=== PATIENT | male | born 1945 | race Caucasian/White ===

== ENCOUNTER 2020-04-28 07:28 | Emergency (ER) | payer MEDICARE, OTHER ==
[~2020-04-28] VITALS: Ht 172.7 cm; Wt 83.0 kg
[~2020-04-28 07:28] MED LIST: AMI25T PO; ASPI-10; ATEN-169 PO; CARI350T PO; CLOP75TA35 PO; DIPH-423 PO; HCTZ25T PO; HYDR-4353 PO; RANI-366 PO; ZOC40T PO
[2020-04-28] MEDS ORDERED: oxyCODONE SR 10mg (sust. release) tab PO ONE (09:00)
[2020-04-28] MEDS ORDERED: ketorolac trometh. 30mg/ml inj. IM ONE (09:00)
[2020-04-28 09:41] VITALS: BP 158/75
== END 2020-04-28 10:30 | disposition home or self-care (01) ==
LOC: ER 07:28
DX: G89.29 Other chronic pain (principal); M47.896 Other spondylosis, lumbar region; M16.9 Osteoarthritis of hip, unspecified; I25.10 Atherosclerotic heart disease of native coronary artery without angina pectoris; Z98.61 Coronary angioplasty status; Z98.890 Other specified postprocedural states; Z79.82 Long term (current) use of aspirin
CPT/HCPCS: 72100; 72170; 73552; 96372; 99284; J1885

== ENCOUNTER 2021-02-18 10:36 | Day surgery (SDC) | payer MEDICARE ==
[2021-02-17 14:13] LABS: BASOPHILS % (AUTO) 0.7 % (0-1); EOSINOPHILS # (AUTO) 0.2 X10'3 (0-0.9); EOSINOPHILS % (AUTO) 4.1 % (0-6); HEMATOCRIT 45.8 % (42.0-52.0); HEMOGLOBIN 15.2 g/dl (14.0-17.9); LYMPHOCYTES # (AUTO) 0.8 X10'3 (1.1-4.8); LYMPHOCYTES % (AUTO) 19.4 % (21-51); MEAN CORPUSCULAR HEMOGLOBIN 31.6 PG (27.0-31.0); MEAN CORPUSCULAR HGB CONC 33.2 g/dL (33.0-36.5); MONOCYTES # (AUTO) 0.3 X10'3 (0-0.9); MONOCYTES % (AUTO) 8.3 % (2-12); NEUTROPHILS # (AUTO) 2.8 X10'3 (1.8-7.7); NEUTROPHILS % (AUTO) 67.5 % (42-75); PLATELET COUNT 241 X10'3 (140-440); RED BLOOD COUNT 4.82 X10'6 (4.70-6.10); RED CELL DISTRIBUTION WIDTH 13.3 % (11.5-14.5); WHITE BLOOD COUNT 4.1 X10'3 (4.5-11.0)
[2021-02-17 14:21] LABS: ALBUMIN 4.2 G/DL (3.4-5.0); ANION GAP 8 (8-16); BLOOD UREA NITROGEN 18 MG/DL (7-18); BUN/CREATININE RATIO 17.5 (5.4-32.0); CALCIUM 9.6 MG/DL (8.5-10.1); CHLORIDE 101 MMOL/L (99-107); CREATININE 1.03 MG/DL (0.60-1.10); GLUCOSE 108 MG/DL (70-104); POTASSIUM 4.2 MMOL/L (3.5-5.1); SODIUM 139 MMOL/L (135-145); TOTAL CARBON DIOXIDE 29.9 MMOL/L (24-32); eGFR 70 ML/MIN
[2021-02-17 14:25] LABS: PARTIAL THROMBOPLASTIN TIME 27 SECONDS (22-32)
[2021-02-18] VITALS (10 sets, daily range): BP systolic 125–146; BP diastolic 63–83
[~2021-02-18] VITALS: Ht 170.2 cm; Wt 79.7 kg
[~2021-02-18 10:36] MED LIST changes: +CLOP75TA34 PO; -CLOP75TA35 PO
[2021-02-18] MEDS ORDERED: LORazepam 0.5 MG tablet PO PRN (10:55)
[2021-02-18] MEDS ORDERED: diphenhydrAMINE 25mg capsule PO PRN (10:55)
[2021-02-18] MEDS ORDERED: ASPI-1053 PO (11:49)
[2021-02-18] MEDS ORDERED: OMEP-50 PO (11:49)
[2021-02-18] MEDS ORDERED: AMLO5TAB PO (11:49)
[2021-02-18] MEDS ORDERED: LISI1TAB29 PO (11:49)
[2021-02-18] MEDS ORDERED: CLOP75TA33 PO (11:56)
[2021-02-18] MEDS ORDERED: FENO145T26 PO (11:56)
[2021-02-18] MEDS ORDERED: MELA10TA PO (11:56)
[2021-02-18] MEDS ORDERED: ROSU40TA PO (11:56)
[2021-02-18] MEDS ORDERED: GABA600T13 PO (11:56)
[2021-02-18] MEDS ORDERED: LIDOcaine/PRILOcaine 5gm cream TP ONE (12:10)
[2021-02-18] MEDS ORDERED: fentaNYL/PF 50MCG/1 ML 2ML syringe ONE (12:40)
[2021-02-18] MEDS ORDERED: LIDOcaine 1% (10mg/ml)w/preservative injection 20ml MDV ONE (12:40)
[2021-02-18] MEDS ORDERED: verapamil 2.5 mg/ml inj IV ONE (12:40)
[2021-02-18] MEDS ORDERED: midazolam 1 mg/ML 2ml injection ONE (12:40)
[2021-02-18] MEDS ORDERED: iohexol 350MG/ML 100ml bottle IV ONE ×2 (12:41→13:39)
[2021-02-18] MEDS ORDERED: iohexol 350 MG/ML 50ML vial IV ONE ×3 (12:41→14:47)
[2021-02-18] MEDS ORDERED: nitroGLYCERIN-Tridil 50MG/D5W 250 ML IV ONE (12:41)
[2021-02-18] MEDS ORDERED: heparin 1,000unit/ml 10ml vial 10 ML ONE ×2 (13:05→13:39)
[2021-02-18] MEDS ORDERED: heparin 25,000 UNIT/250ml bag 250 ML IV ONE (13:44)
[2021-02-18] MEDS ORDERED: pneumococcal 23-VAL P-sac vacc 25 mcg/0.5ml vial IMVAC ONE (14:15)
[2021-02-18] MEDS ORDERED: clopidogrel 300mg tablet ONE (14:56)
== END 2021-02-18 19:55 | disposition home or self-care (01) ==
LOC: SSTAY O 10:36
PROVIDERS: ATTEND Internal Medicine Cardiovascular Disease
DX: R94.39 Abnormal result of other cardiovascular function study (principal); T82.857A Stenosis of other cardiac prosthetic devices, implants and grafts, initial encounter; I25.10 Atherosclerotic heart disease of native coronary artery without angina pectoris; I10 Essential (primary) hypertension; I25.2 Old myocardial infarction; E78.49 Other hyperlipidemia; M19.90 Unspecified osteoarthritis, unspecified site; D64.9 Anemia, unspecified; F17.210 Nicotine dependence, cigarettes, uncomplicated; Z98.890 Other specified postprocedural states; Z96.661 Presence of right artificial ankle joint; Z96.652 Presence of left artificial knee joint; Z79.899 Other long term (current) drug therapy; Z79.82 Long term (current) use of aspirin; Z79.01 Long term (current) use of anticoagulants; Z80.9 Family history of malignant neoplasm, unspecified; Z83.3 Family history of diabetes mellitus; Y83.8 Other surgical procedures as the cause of abnormal reaction of the patient, or of later complication, without mention of misadventure at the time of the procedure; Y92.89 Other specified places as the place of occurrence of the external cause
CPT/HCPCS: 36415; 76937; 80048; 85025; 85347; 85610; 85730; 93005; 93458; 99152; 99153; C1725; C1751; C1769; C1874; C1894; C9600; J1644; J2001; J2250; J3010; Q0163; Q9967; A4620; A5120; A6258; J3490

== ENCOUNTER 2021-03-04 06:12 | Day surgery (SDC) | payer MEDICARE ==
[~2021-03-04] VITALS: Ht 167.6 cm; Wt 82.0 kg
[2021-03-04] VITALS (14 sets, daily range): BP systolic 73–132; BP diastolic 45–74
[~2021-03-04 06:12] MED LIST changes: -AMI25T PO; +AMLO5TAB PO; -ASPI-10; +ASPI-1053 PO; +CLOP75TA33 PO; -CLOP75TA34 PO; -DIPH-423 PO; +FENO145T26 PO; +GABA600T13 PO; -HCTZ25T PO; +LISI1TAB29 PO; +MELA10TA PO; +OMEP-50 PO; -RANI-366 PO; +ROSU40TA PO; -ZOC40T PO
[2021-03-04] MEDS ORDERED: LORazepam 0.5 MG tablet PO PRN (06:35)
[2021-03-04] MEDS ORDERED: diphenhydrAMINE 25mg capsule PO PRN (06:35)
[2021-03-04] MEDS ORDERED: LIDOcaine/PRILOcaine 5gm cream TP ONE (06:35)
[2021-03-04 07:10] LABS: EOSINOPHILS # (AUTO) 0.3 X10'3 (0-0.9); EOSINOPHILS % (AUTO) 7.3 % (0-6); HEMATOCRIT 41.2 % (42.0-52.0); LYMPHOCYTES # (AUTO) 1.1 X10'3 (1.1-4.8); LYMPHOCYTES % (AUTO) 30.3 % (21-51); MEAN CORPUSCULAR HEMOGLOBIN 32.1 PG (27.0-31.0); MEAN CORPUSCULAR HGB CONC 33.9 g/dL (33.0-36.5); MEAN CORPUSCULAR VOLUME 94.8 FL (78-98); MEAN PLATELET VOLUME 8.6 FL (7.4-10.4); MONOCYTES # (AUTO) 0.4 X10'3 (0-0.9); MONOCYTES % (AUTO) 10.7 % (2-12); NEUTROPHILS # (AUTO) 1.9 X10'3 (1.8-7.7); NEUTROPHILS % (AUTO) 50.7 % (42-75); PLATELET COUNT 253 X10'3 (140-440); RED BLOOD COUNT 4.34 X10'6 (4.70-6.10); RED CELL DISTRIBUTION WIDTH 12.9 % (11.5-14.5); WHITE BLOOD COUNT 3.7 X10'3 (4.5-11.0)
[2021-03-04 07:17] LABS: ALBUMIN 3.6 G/DL (3.4-5.0); ANION GAP 10 (8-16); BLOOD UREA NITROGEN 22 MG/DL (7-18); BUN/CREATININE RATIO 15.2 (5.4-32.0); CALCIUM 8.5 MG/DL (8.5-10.1); CHLORIDE 102 MMOL/L (99-107); CREATININE 1.45 MG/DL (0.60-1.10); GLUCOSE 86 MG/DL (70-104); POTASSIUM 4.5 MMOL/L (3.5-5.1); SODIUM 137 MMOL/L (135-145); TOTAL CARBON DIOXIDE 25.3 MMOL/L (24-32); eGFR 47 ML/MIN
[2021-03-04 07:21] LABS: PARTIAL THROMBOPLASTIN TIME 26 SECONDS (22-32)
[2021-03-04] MEDS: normal saline 1,000 ML IV SCH ×2 (07:22→11:13)
[2021-03-04] MEDS ORDERED: nitroGLYCERIN-Tridil 50MG/D5W 250 ML IV ONE (07:41)
[2021-03-04] MEDS ORDERED: verapamil 2.5 mg/ml inj IV ONE (07:41)
[2021-03-04] MEDS ORDERED: iohexol 350 MG/ML 50ML vial IV ONE (07:42)
[2021-03-04] MEDS ORDERED: heparin 1,000unit/ml 10ml vial 10 ML ONE (07:42)
[2021-03-04] MEDS ORDERED: iohexol 350 MG/1 ML 200ml bottle ONE ×2 (07:42→09:29)
[2021-03-04] MEDS ORDERED: midazolam 1 mg/ML 2ml injection ONE (07:42)
[2021-03-04] MEDS ORDERED: fentaNYL/PF 50MCG/1 ML 2ML syringe ONE (07:42)
[2021-03-04] MEDS ORDERED: LIDOcaine 1% (10mg/ml)w/preservative injection 20ml MDV ONE (07:53)
[2021-03-04] MEDS ORDERED: proCHLORperazine 10 MG/2 ml inj ONE (08:07)
[2021-03-04] MEDS ORDERED: HYDROmorphone 1 mg/ml syringe ONE (08:07)
[2021-03-04] MEDS ORDERED: sodium bicarbonate (8.4%) inj. 75 ML in dextrose 5% water 500ml 500 ML IV ONE (08:25)
[2021-03-04] MEDS ORDERED: heparin 25,000 UNIT/250ml bag 250 ML IV ONE (08:29)
[2021-03-04] MEDS ORDERED: DOPamine 400mg/D5W 250ml 250 ML IV ONE (08:35)
[2021-03-04] MEDS ORDERED: clopidogrel 300mg tablet ONE (09:43)
--- NOTE | 2021-03-04 12:00 | NUR ---
Pt ate 100% of breakfast tray, 350ml oral fluid intake. fluids running in IV as ordered. Pt A/O. Sitting up with feet in bed, is at bedside. Will continue to monitor.
--- NOTE | 2021-03-04 12:30 | NUR ---
Pt voided 100ml clear, yellow
--- NOTE | 2021-03-04 12:40 | NUR ---
Pt complaint of upper gastric pain, as he points to his stomach. States the pain does not radial and is 4/10. Will continue to monitor. is at bedside and call light is in patient hands
--- NOTE | 2021-03-04 13:25 | NUR ---
Pt voided 150ml clear yellow
--- NOTE | 2021-03-04 16:11 | NUR ---
Pt voided, at bedside and she emptied urinal but reported void.
[2021-03-04] MEDS ORDERED: ACETYLCYSTEINE 200 MG/1 ML 4 ML ORAL SOLUTION PO SCH (20:00)
[2021-03-05] MEDS ORDERED: clopidogrel 75mg tablet PO SCH (08:00)
== END 2021-03-04 18:55 | disposition home or self-care (01) ==
LOC: SSTAY O 06:12
PROVIDERS: ATTEND Internal Medicine Cardiovascular Disease
DX: I25.10 Atherosclerotic heart disease of native coronary artery without angina pectoris (principal); T82.857A Stenosis of other cardiac prosthetic devices, implants and grafts, initial encounter; I10 Essential (primary) hypertension; I25.2 Old myocardial infarction; M19.90 Unspecified osteoarthritis, unspecified site; E78.49 Other hyperlipidemia; D64.9 Anemia, unspecified; Z98.890 Other specified postprocedural states; Z79.899 Other long term (current) drug therapy; Z95.5 Presence of coronary angioplasty implant and graft; Z96.651 Presence of right artificial knee joint; Z96.661 Presence of right artificial ankle joint; Z87.891 Personal history of nicotine dependence; Y83.8 Other surgical procedures as the cause of abnormal reaction of the patient, or of later complication, without mention of misadventure at the time of the procedure; Y92.89 Other specified places as the place of occurrence of the external cause
CPT/HCPCS: 36415; 80048; 85025; 85347; 85610; 85730; 92920; 92921; 93005; 99152; 99153; C1725; C1751; C1769; C1874; C1892; C1894; C9600; J0780; J1170; J1265; J1644; J2001; J2250; J3010; J7030; Q0163; Q9967; A4620; A6258; J3490

== ENCOUNTER 2022-01-26 12:53 | Outpatient (CLI) | payer MEDICARE ==
[~2022-01-26 12:53] MED LIST changes: -AMLO5TAB PO; +AMLO5TAB4 PO; +ASCO-134 PO; +ASPI-10 PO; -ASPI-1053 PO; -ATEN-169 PO; +ATEN50TA PO; -CLOP75TA33 PO; +DIPH-735 PO; +FERR-39 PO; +GABA-534 PO; -GABA600T13 PO; -LISI1TAB29 PO; -MELA10TA PO; +MELA3TAB39 PO; -OMEP-50 PO; +PANT-47 PO; +TICA90TA2 PO
[2022-01-26 13:23] LABS: BASOPHILS % (AUTO) 0.9 % (0-1); EOSINOPHILS # (AUTO) 0.2 X10'3 (0-0.9); HEMATOCRIT 38.9 % (42.0-52.0); HEMOGLOBIN 12.5 g/dl (14.0-17.9); LYMPHOCYTES # (AUTO) 0.6 X10'3 (1.1-4.8); MEAN CORPUSCULAR HEMOGLOBIN 28.1 PG (27.0-31.0); MEAN CORPUSCULAR HGB CONC 32.2 g/dL (33.0-36.5); MEAN CORPUSCULAR VOLUME 87.5 FL (78-98); MEAN PLATELET VOLUME 8.6 FL (7.4-10.4); MONOCYTES # (AUTO) 0.3 X10'3 (0-0.9); MONOCYTES % (AUTO) 9.7 % (2-12); NEUTROPHILS # (AUTO) 2.4 X10'3 (1.8-7.7); NEUTROPHILS % (AUTO) 68.4 % (42-75); PLATELET COUNT 296 X10'3 (140-440); RED BLOOD COUNT 4.45 X10'6 (4.70-6.10); RED CELL DISTRIBUTION WIDTH 14.7 % (11.5-14.5); WHITE BLOOD COUNT 3.5 X10'3 (4.5-11.0)
[2022-01-26 13:38] LABS: APTT 28 SECONDS (22-32)
[2022-01-26 13:42] LABS: ALBUMIN 3.3 G/DL (3.4-5.0); ANION GAP 14 (8-16); BLOOD UREA NITROGEN 29 MG/DL (7-18); BUN/CREATININE RATIO 24.8 (5.4-32.0); CHLORIDE 106 MMOL/L (99-107); CREATININE 1.17 MG/DL (0.60-1.10); GLUCOSE 110 MG/DL (70-104); POTASSIUM 3.8 MMOL/L (3.5-5.1); SODIUM 142 MMOL/L (135-145); TOTAL CARBON DIOXIDE 22.5 MMOL/L (24-32); eGFR 60 ML/MIN
== END 2022-01-26 23:59 | disposition home or self-care (01) ==
LOC: LAB 12:53 → EDSTATUS 01-27 08:00
PROVIDERS: ATTEND Internal Medicine Cardiovascular Disease
DX: I25.119 Atherosclerotic heart disease of native coronary artery with unspecified angina pectoris (principal); Z95.5 Presence of coronary angioplasty implant and graft; Z79.01 Long term (current) use of anticoagulants
CPT/HCPCS: 36415; 80048; 85025; 85610; 85730

== ENCOUNTER 2022-08-17 02:39 | Inpatient (IN) | payer MEDICARE ==
[~2022-08-17] VITALS: Ht 170.2 cm; Wt 79.7 kg
[2022-08-17] VITALS (25 sets, daily range): BP systolic 58–132; BP diastolic 34–70
[2022-08-17] MEDS ORDERED: heparin 10,000 units/1 ML INJ IV ONE ×3 (03:00→03:10)
[2022-08-17] MEDS ORDERED: heparin 10,000 units/1 ML INJ IV PRN (03:00)
[2022-08-17] MEDS ORDERED: heparin 25,000 UNIT/250ml bag 250 ML IV PRN (03:00)
--- NOTE | 2022-08-17 03:00 | NUR ---
PT BEING TAKEN TO AGRICULTURAL RESEARCH TECHNOLOGIST WITH [facility], AND AGRICULTURAL RESEARCH TECHNOLOGIST TEAM.
--- NOTE | 2022-08-17 03:02 | NUR ---
PT TAKEN TO TAPE DUPLICATOR BEFORE NEW HEPARIN ORDER CAME THROUGH
[2022-08-17 03:08] LABS: BASOPHILS % (AUTO) 0.1 % (0-1); EOSINOPHILS % (AUTO) 0 % (0-6); HEMATOCRIT 27.2 % (42.0-52.0); HEMOGLOBIN 8.9 g/dl (14.0-17.9); LYMPHOCYTES # (AUTO) 1.1 X10'3 (1.1-4.8); LYMPHOCYTES % (AUTO) 9.3 % (21-51); MEAN CORPUSCULAR HEMOGLOBIN 30.3 PG (27.0-31.0); MEAN CORPUSCULAR HGB CONC 32.5 g/dL (33.0-36.5); MEAN CORPUSCULAR VOLUME 93.2 FL (78-98); MEAN PLATELET VOLUME 9.6 FL (7.4-10.4); MONOCYTES % (AUTO) 8.6 % (2-12); NEUTROPHILS # (AUTO) 9.8 X10'3 (1.8-7.7); PLATELET COUNT 222 X10'3 (140-440); RED BLOOD COUNT 2.92 X10'6 (4.70-6.10); RED CELL DISTRIBUTION WIDTH 14.5 % (11.5-14.5); WHITE BLOOD COUNT 11.9 X10'3 (4.5-11.0)
[2022-08-17] MEDS ORDERED: midazolam 100mg in NS 100ml 100 ML IV PRN ×2 (03:55→19:10)
[2022-08-17] MEDS ORDERED: FENTANYL-0.9 % NACL/PF 100 ML IV PRN (03:55)
[2022-08-17] MEDS ORDERED: heparin 1,000unit/ml 10ml vial 10 ML ONE (04:22)
[2022-08-17] MEDS ORDERED: iohexol 350MG/ML 100ml bottle IV ONE (04:28)
[2022-08-17] MEDS ORDERED: tirofiban 5mg in NS 100mL 100 ML IV ONE (04:30)
[2022-08-17] MEDS ORDERED: midazolam 1 mg/ML 2ml injection ONE ×2 (04:55→05:36)
[2022-08-17] MEDS ORDERED: NORepinephrine 8mg/ 250ml NS 250 ML IV ONE (07:41)
[2022-08-17 07:47] LABS: BASOPHILS % (AUTO) 0.2 % (0-1); EOSINOPHILS % (AUTO) 0 % (0-6); HEMATOCRIT 27.6 % (42.0-52.0); HEMOGLOBIN 8.7 g/dl (14.0-17.9); LYMPHOCYTES # (AUTO) 0.6 X10'3 (1.1-4.8); LYMPHOCYTES % (AUTO) 5.2 % (21-51); MEAN CORPUSCULAR HEMOGLOBIN 30.4 PG (27.0-31.0); MEAN CORPUSCULAR HGB CONC 31.5 g/dL (33.0-36.5); MEAN CORPUSCULAR VOLUME 96.4 FL (78-98); MEAN PLATELET VOLUME 9.8 FL (7.4-10.4); MONOCYTES # (AUTO) 1.2 X10'3 (0-0.9); MONOCYTES % (AUTO) 9.4 % (2-12); NEUTROPHILS # (AUTO) 10.6 X10'3 (1.8-7.7); NEUTROPHILS % (AUTO) 85.2 % (42-75); PLATELET COUNT 245 X10'3 (140-440); RED BLOOD COUNT 2.86 X10'6 (4.70-6.10); RED CELL DISTRIBUTION WIDTH 14.6 % (11.5-14.5); WHITE BLOOD COUNT 12.5 X10'3 (4.5-11.0)
[2022-08-17 08:08] LABS: ALANINE AMINOTRANSFERASE 49 U/L (12-78); ALBUMIN 2.5 G/DL (3.4-5.0); ALBUMIN/GLOBULIN RATIO 0.8 (1.1-1.5); ALKALINE PHOSPHATASE 40 IU/L (46-116); ANION GAP 16 (8-16); ASPARTATE AMINO TRANSFERASE 181 U/L (10-37); BILIRUBIN,TOTAL 0.7 MG/DL (0.1-1.0); BLOOD UREA NITROGEN 43 MG/DL (7-18); BUN/CREATININE RATIO 37.1 (5.4-32.0); CALCIUM 7.5 MG/DL (8.5-10.1); CHLORIDE 110 MMOL/L (99-107); CREATININE 1.16 MG/DL (0.60-1.10); GLUCOSE 144 MG/DL (70-104); MAGNESIUM 2.3 MG/DL (1.5-2.4); PHOSPHORUS 4.8 MG/DL (2.3-4.5); POTASSIUM 3.4 MMOL/L (3.5-5.1); SODIUM 141 MMOL/L (135-145); TOTAL PROTEIN 5.7 G/DL (6.4-8.2); eGFR 61 ML/MIN
[2022-08-17 08:17] LABS: TOTAL CARBON DIOXIDE 14.6 MMOL/L (24-32)
[2022-08-17] MEDS ORDERED: ticagrelor 90mg tablet PO ONE (10:10)
[2022-08-17] MEDS ORDERED: tirofiban 12.5mg in NS 250mL 250 ML IV SCH (10:25)
--- NOTE | 2022-08-17 10:33 | NUR ---
Pt received from metallurgical lab technician. Fiberoptic cable not reading BP, metallurgical lab technician RN and staff notified. IABP replaced with no resolution in fiberoptic reading. Cardiology notified.
[2022-08-17] MEDS: NS IV SCH ×2 (10:37→16:10)
[2022-08-17] MEDS: TIROFIBAN IV SCH ×2 (10:37→16:10)
--- NOTE | 2022-08-17 11:08 | NUR ---
Initial: Pt admitted w/ STEMI s/p concrete mixing plant laborer and stent placement per EMR. Pt currently intubated though per RN, pt and family may not want that. Pending MD discussion w/ family to determine further plan of care. If expected prolonged intubation, recommend TF if within POC, otherwise advance to Regular diet. Will continue to monitor. Recs: 1. IF TF; Continuous TF using Vital AF at 65ml/hr goal to provide 1560ml volume, 1872kcals, 117g protein, 1265ml free water 2. IF TF; Additional water flush 150ml Q4H; monitor serum Na 3. IF TF; PALB Q / 4. Routine bowel care 5. Daily wts 6. Advance to Regular diet upon extubation Addendum: 08/17/22 at [address] Amended: Links added.
[2022-08-17] MEDS ORDERED: fentaNYL/NS/PF 2,500 mcg/250mL 250 ML IV PRN ×2 (11:30→13:15)
[2022-08-17] MEDS ORDERED: PERFLUTREN PROTEIN-A MICROSPHR (Optison) 0.22 MG/ML 3ML VIAL IV ONE (11:40)
[2022-08-17 12:56] LABS: ABG BASE EXCESS -2.9 mmol/L (-2.0-2.0); ABG HCO3 21.9 mmol/L (22.0-26.0); ABG OXYGEN SATURATION 95.1 % (94-97); ABG PCO2 (T) 36.4 mmHg (35.0-48.0); ABG PO2 (T) 79.3 mmHg (75.0-100.0); FCOHb 0.3 % (0.0-3.9); FO2Hb 94.8 % (94-97); PATIENT TEMPERATURE 36.2; PEEP 5 cm H2O; RESPIRATORY RATE 16 b/min; TIDAL VOLUME 500 mL; TOTAL HEMOGLOBIN 9.2 G/dl (14.0-17.9)
[2022-08-17] MEDS ORDERED: sodium bicarb (8.4%) ped inj. 50 MEQ in normal saline 100ml IV soln 100 ML IV ONE (14:35)
[2022-08-17] MEDS ORDERED: sodium bicarbonate (8.4%) 1 mEq/ml syringe IV ONE ×2 (14:50→15:15)
[2022-08-17] MEDS ORDERED: sodium chloride 0.45% 1,000 ML IV SCH (16:05)
[2022-08-17] MEDS ORDERED: heparin, porcine 5000 units/ml vial SQ SCH (16:35)
[2022-08-17] MEDS ORDERED: DOBUTamine-DoBUTrex 500mg/D5W 250 ML IV SCH (17:15)
[2022-08-17] MEDS ORDERED: NORepinephrine 8mg/ 250ml NS 250 ML IV SCH (19:23)
--- NOTE | 2022-08-17 19:35 | NUR ---
Call in to Samantha Marie DNP. call goes to voicemail. emergent request to call back left
--- NOTE | 2022-08-17 19:40 | NUR ---
Call in to Samantha Marie DNP. Call goes to voicemail. 2nd emergent request left to call back
[2022-08-17] MEDS ORDERED: adenosine 3mg/ml 2ml vial IV ONE (19:41)
[2022-08-17] MEDS ORDERED: amiodarone 150mg/dext, iso-os 100 ML IV ONE ×2 (19:44→19:50)
--- NOTE | 2022-08-17 19:45 | NUR ---
Spoke with Dr. Mariano on phone. condition update given regarding rapid HR resistant to current therapies. Orders noted for amiodarone bolus and drip
[2022-08-17] MEDS ORDERED: amiodarone/D5 360MG/200ML BAG 200 ML IV SCH ×3 (19:50→20:07)
[2022-08-17] MEDS ORDERED: ticagrelor 90mg tablet PO SCH (20:00)
[2022-08-17] MEDS ORDERED: digoxin 250mcg/ml 2ml ampule IV ONE (20:05)
[2022-08-17] MEDS ORDERED: amiodarone 150mg/dext, iso-os 100 ML IV PRN (20:10)
[2022-08-17] MEDS ORDERED: digoxin 250mcg/ml 2ml ampule ONE (20:11)
--- NOTE | 2022-08-17 20:35 | NUR ---
Spoke with on phone. condition update given regarding difficulties with HR and BP. requests call back should we be unsuccessful in stabilizing in next hour as she would like to come in and she is a 2-hr drive away
[2022-08-17] MEDS ORDERED: NORepinephrine inj. 32 MG in normal saline 250ml IV soln 218 ML IV SCH (20:45)
--- NOTE | 2022-08-17 20:45 | NUR ---
collaborative teacher at bedside to draw. able to get small amount for chemistries only.
--- NOTE | 2022-08-17 20:57 | NUR ---
1999 Spoke with Samantha Marie DNP on phone. Condition update given. Orders noted for Dig
--- NOTE | 2022-08-17 21:52 | NUR ---
Spoke to Dana, Pts . Expressed changes in pts status including heart rate in Afib rate as high as 190"s, changes in medication and blood pressure. Family said they are on their way in, it will take around 2 hours for them to get here
[2022-08-17 21:55] LABS: BASOPHILS % (AUTO) 0.3 % (0-1); EOSINOPHILS % (AUTO) 0 % (0-6); HEMATOCRIT 22.2 % (42.0-52.0); HEMOGLOBIN 7.4 g/dl (14.0-17.9); LYMPHOCYTES # (AUTO) 0.6 X10'3 (1.1-4.8); LYMPHOCYTES % (AUTO) 5.8 % (21-51); MEAN CORPUSCULAR HGB CONC 33.2 g/dL (33.0-36.5); MEAN CORPUSCULAR VOLUME 93.3 FL (78-98); MEAN PLATELET VOLUME 9.7 FL (7.4-10.4); MONOCYTES # (AUTO) 1.1 X10'3 (0-0.9); MONOCYTES % (AUTO) 10.9 % (2-12); NEUTROPHILS # (AUTO) 8.5 X10'3 (1.8-7.7); PLATELET COUNT 238 X10'3 (140-440); RED BLOOD COUNT 2.38 X10'6 (4.70-6.10); RED CELL DISTRIBUTION WIDTH 14.2 % (11.5-14.5); WHITE BLOOD COUNT 10.2 X10'3 (4.5-11.0)
[2022-08-17 21:57] LABS: APTT 25 SECONDS (22-32)
[2022-08-17 21:59] LABS: ALANINE AMINOTRANSFERASE 54 U/L (12-78); ALBUMIN 2.1 G/DL (3.4-5.0); ALBUMIN/GLOBULIN RATIO 0.7 (1.1-1.5); ALKALINE PHOSPHATASE 42 IU/L (46-116); ANION GAP 12 (8-16); ASPARTATE AMINO TRANSFERASE 227 U/L (10-37); BILIRUBIN,TOTAL 0.8 MG/DL (0.1-1.0); BLOOD UREA NITROGEN 48 MG/DL (7-18); BUN/CREATININE RATIO 36.4 (5.4-32.0); CALCIUM 7.6 MG/DL (8.5-10.1); CHLORIDE 110 MMOL/L (99-107); CREATININE 1.32 MG/DL (0.60-1.10); GLUCOSE 175 MG/DL (70-104); MAGNESIUM 1.7 MG/DL (1.5-2.4); PHOSPHORUS 3.2 MG/DL (2.3-4.5); POTASSIUM 3.4 MMOL/L (3.5-5.1); SODIUM 145 MMOL/L (135-145); TOTAL PROTEIN 5.2 G/DL (6.4-8.2); eGFR 52 ML/MIN
[2022-08-17] MEDS ORDERED: potassium Cl 20 mEq SR tablet PO PRN (22:20)
[2022-08-17] MEDS ORDERED: potassium Cl 20mEq/100mL bag 100 ML IV PRN (22:20)
[2022-08-17] MEDS ORDERED: magnesium 2GM in 50ml NS 50 ML IV PRN (22:20)
[2022-08-17] MEDS ORDERED: potassium CL 10mEq/100ml bag 100 ML IV PRN (22:20)
[2022-08-17] MEDS ORDERED: magnesium 4gm in 100ml NS 100 ML IV PRN (22:20)
[2022-08-17] MEDS ORDERED: POTASSIUM BICARB 20meq eff tab 20 MEQ TABLET.EFF PO PRN (22:38)
--- NOTE | 2022-08-17 23:24 | NUR ---
Spoke to Dr. Herman updated him on family wishes for comfort care. Family spoke to Samantha Marie NP regarding their wishes for palliative care. Pt is now comfort care will proceed to extubate pt.
[2022-08-17] MEDS: LORazepam 2 mg/ml vial IV PRN (23:32)
[2022-08-17] MEDS: HYDROmorphone 1 mg/ml syringe IV PRN (23:34)
--- NOTE | 2022-08-17 23:40 | NUR ---
RT at bedside. pt extubated at this time. IABP off at this time. Family at bedside
[2022-08-18] MEDS ORDERED: digoxin 250mcg/ml 2ml ampule IV ONE
[2022-08-18] MEDS: HYDROmorphone 1 mg/ml syringe IV PRN ×2 (00:38→02:21)
[2022-08-18] MEDS: LORazepam 2 mg/ml vial IV PRN (02:21)
--- NOTE | 2022-08-18 02:35 | NUR ---
noted asystole on the monitor. no active respirations noted. no heart tones auscultated x 1 min. unable to obtain a blood pressure. Pt pronounced at this time. Family at bedside
--- NOTE | 2022-08-18 02:42 | NUR ---
RN IS TO DOCUMENT YES TO ALL APPLICABLE AREAS Pronouncement of : 1. Time Physician Notified:[id number] 2. Date of :08/18/2022 3. Time of : 234 4. DNR/Withdraw life support documented:08/17/22 5. Monitor strip has been placed on chart:yes 6. Assessment process is of one-minute duration and includes following criteria: a) Patient is unresponsive to all stimuli: yes b) Pupils fixed and non-reactive:yes c) Auscultation of precordium reveals absence of heart tones:yes d) Auscultation of lungs reveals absence of breath sounds:yes e) Absence of blood pressure / all vital signs:yes f) QRS complexes are not present on monitor / EKG strip:yes g) Pacer spikes without capture:NA 4. Comments: Family at bedside
[2022-08-18] MEDS ORDERED: digoxin 250mcg/ml 2ml ampule IV SCH (08:00)
[2022-08-18] MEDS ORDERED: aspirin 81mg tab.chew PO SCH (08:30)
== END 2022-08-18 02:45 | DRG 270 ==
LOC: ER 02:39 → CICU 2S 06:25
PROVIDERS: ADMIT Internal Medicine Interventional Cardiology; ATTEND Internal Medicine Interventional Cardiology
PROC: 5A02210 Assistance with Cardiac Output using Balloon Pump, Continuous (ICD-10-PCS; principal; 2022-08-17)
PROC: 02713ZZ Dilation of Coronary Artery, Two Arteries, Percutaneous Approach (ICD-10-PCS; 2022-08-17)
PROC: 02F03ZZ Fragmentation in Coronary Artery, One Artery, Percutaneous Approach (ICD-10-PCS; 2022-08-17)
PROC: 02C03ZZ Extirpation of Matter from Coronary Artery, One Artery, Percutaneous Approach (ICD-10-PCS; 2022-08-17)
PROC: 4A023N7 Measurement of Cardiac Sampling and Pressure, Left Heart, Percutaneous Approach (ICD-10-PCS; 2022-08-17)
PROC: B2111ZZ Fluoroscopy of Multiple Coronary Arteries using Low Osmolar Contrast (ICD-10-PCS; 2022-08-17)
PROC: 5A1935Z Respiratory Ventilation, Less than 24 Consecutive Hours (ICD-10-PCS; 2022-08-17)
PROC: 0BH17EZ Insertion of Endotracheal Airway into Trachea, Via Natural or Artificial Opening (ICD-10-PCS; 2022-08-17)
PROC: B41F1ZZ Fluoroscopy of Right Lower Extremity Arteries using Low Osmolar Contrast (ICD-10-PCS; 2022-08-17)
DX: I21.3 ST elevation (STEMI) myocardial infarction of unspecified site (principal); G93.41 Metabolic encephalopathy; I50.43 Acute on chronic combined systolic (congestive) and diastolic (congestive) heart failure; J96.01 Acute respiratory failure with hypoxia; N17.0 Acute kidney failure with tubular necrosis; D68.59 Other primary thrombophilia; R57.9 Shock, unspecified; I42.9 Cardiomyopathy, unspecified; E87.20 Acidosis, unspecified; E78.00 Pure hypercholesterolemia, unspecified; Z51.5 Encounter for palliative care; R00.0 Tachycardia, unspecified; I25.10 Atherosclerotic heart disease of native coronary artery without angina pectoris; E87.6 Hypokalemia; G62.9 Polyneuropathy, unspecified; I48.91 Unspecified atrial fibrillation; Z79.02 Long term (current) use of antithrombotics/antiplatelets; Z80.1 Family history of malignant neoplasm of trachea, bronchus and lung; Z80.8 Family history of malignant neoplasm of other organs or systems; Z82.49 Family history of ischemic heart disease and other diseases of the circulatory system; Z95.5 Presence of coronary angioplasty implant and graft; Z79.899 Other long term (current) drug therapy; Z79.82 Long term (current) use of aspirin
CPT/HCPCS: 31500; 33967; 93306; 93454; 99285; C9606; 36415; 36600; 71045; 74018; 80053; 82803; 82948; 83605; 83735; 83880; 84100; 84484; 85018; 85025; 85610; 85730; 86885; 86900; 86901; 92924; 93458; 94002; 94760; 94799; 99152; 99153; A4340; A4620; A5120; A6258; C1725; C1751; C1757; C1760; C1761; C1769; G0378; J0153; J0282; J1160; J1170; J1250; J1644; J1940; J2060; J2250; J2370; J3010; J3246; J3490; J7030; J7040; Q9956; Q9967